=== PATIENT | male | born 1955 | race Caucasian/White ===

== ENCOUNTER 2016-11-30 10:34 | Emergency (ER) | payer OTHER ==
[2016-11-30 10:46] VITALS: BMI 25.8
[2016-11-30] MEDS ORDERED: KETOROLAC TROMETHAMINE 60 MG/2 ML VIAL IM ONE (11:30)
--- NOTE | 2016-11-30 11:35 | PDOC ---
History of Present Illness - General Chief Complaint: Injury Stated Complaint: FALL, RT LEG PAIN Time Seen by Provider: 11/30/16 11:06 History Source: Patient Exam Limitations: No Limitations - History of Present Illness Initial Comments: 11/30/16 11:32 Patient status post fall Tuesday 2. 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 Patient states was well, had no head injury, was able to lift self and continue his work. States approximately 20 minutes later same incident occurred causing him to pull his left shoulder, and falling onto her right shoulder and hip. Continued to have no pain and finished his exercise/activity. States had an uneventful evening had some mild tenderness to his hip and his shoulder, took some Tylenol. Upon his wakening this morning states had severe pain to his right groin where he states is difficult to lift leg and with range of motion. Ambulation 11/30/16 11:35 Occurred: reports: just prior to arrival, last week Severity: reports: mild, moderate Pain Location: reports: lower extremity, upper extremity (left shoulder ) Modifying Factors: worse with: cold therapy (heat pad) Associated Symptoms (Fall): denies symptoms Past History - Travel Traveled outside of the country in the last 30 days: No Close contact w/someone who was outside of country & ill: No - Past Medical History Allergies/Adverse Reactions: Allergies Allergy/AdvReac Type Severity Reaction Status Date / Time No Known Allergies Allergy Verified 11/30/16 10:43 Home Medications: Ambulatory Orders Atorvastatin Ca [Lipitor] 10 mg PO HS 11/30/16 Hypercholesterolemia: Yes - Surgical History Orthopedic Surgery: No - Family Disease History Family Disease History: Heart Disease: Father, Mother, [place]: Grandparents - Psycho/Social/Smoking Cessation Hx Anxiety: No Suicidal Ideation: No Smoking History: Current every day smoker Have you smoked in the past 12 months: Yes Number of Cigarettes Smoked Daily: 10 Information on smoking cessation initiated: Yes 'Breaking Loose' booklet given: 11/30/16 Hx Alcohol Use: No Drug/Substance Use Hx: No Substance Use Type: None Trauma Specific PMHX - Complaint Specific PMHX Arthritis: No Back Injury: No Neck Injury: No Hx Sacro Iliac Joint Dysfunction: No Review of Systems - Review of Systems Able to Perform ROS?: Yes Is the patient limited Slovak proficient: Yes Constitutional: Yes: Symptoms Reported, See HPI. No: Fever, Malaise HEENTM: No: Symptoms Reported Respiratory: Yes: See HPI. No: Symptoms reported Cardiac (ROS): No: Symptoms Reported ABD/GI: No: Symptoms Reported : No: Symptoms Reported Musculoskeletal: Yes: Symptoms Reported, See HPI, Joint Pain (left shoulder / right upper leg ) Integumentary: Yes: See HPI. No: Symptoms Reported All Other Systems: Reviewed and Negative *Physical Exam - Vital Signs Last Vital Signs Temp Pulse Resp BP Pulse Ox 98.2 F 83 18 162/99 100 11/30/16 10:44 11/30/16 10:44 11/30/16 10:44 11/30/16 10:44 11/30/16 10:44 - Physical Exam General Appearance: Yes: Appropriately Dressed, Apparent Distress, Mild Distress , Moderate Distress HEENT: positive: TMs Normal, Pharynx Normal Neck: positive: Supple. negative: Tender Respiratory/Chest: positive: Lungs Clear, Normal Breath Sounds Gastrointestinal/Abdominal: positive: Soft. negative: Tender Extremity: positive: Normal Capillary Refill, Normal Inspection, Tender, Other ( right hip/pelvis without pain with rocking however difficult to move and pain reproduced at groin ligament with contraction of quadriceps. Able to lift leg from bed, strong flexion and extension at lower extremity knee ankle and feet. ) . negative: Normal Range of Motion (tender left shoulder capsule with pain abduction, worse against resistance. Has strong grasp, flexion and extension, no pain with supination and pronation at elbow or wrist. 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 Patient understands will need to get clearance for work from these private physician. *DC/Admit/Observation/Transfer Diagnosis at time of Disposition: Inguinal strain Qualifiers: Encounter type: initial encounter Laterality: right Qualified Code(s): S76.211A - Strain of adductor muscle, fascia and tendon of right thigh, initial encounter - Discharge Dispostion Disposition: HOME Condition at time of disposition: Stable Admit: No - Referrals Referrals: Johnnie Orozco MD [Primary Care Provider] - Luis Ferrera MD [Staff Physician] - - Patient Instructions Printed Discharge Instructions: DI for Groin Strain, DI for Shoulder Sprain Additional Instructions: Rest, ice to area on and off for 15 minutes 4-6 times a day Avoid heavy lifting or exercise until pain and swelling is resolved or until further directed Keep area highly elevated to reduce swelling Use splints/Varun wrap as directed Followup with orthopedist in one to 2 days if not improving, if significantly improved may wait one week for followup with orthopedist May use ibuprofen 2-200 mg tablets every 6 hours as needed for pain - Post Discharge Activity Work/School Note: Back to Work
[2016-11-30] MEDS ORDERED: KETOROLAC TROMETHAMINE 60 MG/2 ML VIAL ONE (11:37)
[2016-11-30 14:39] VITALS: BP 141/97; PULSE 81; TEMP 98
== END 2016-11-30 13:39 | disposition home or self-care (01) ==
LOC: JER 10:34 → JERFT 10:34 → JER 13:39
PROC: 3E0233Z Introduction of Anti-inflammatory into Muscle, Percutaneous Approach (ICD-10-PCS; principal; 2016-11-30)
DX: S76.211A Strain of adductor muscle, fascia and tendon of right thigh, initial encounter (principal); W00.0XXA Fall on same level due to ice and snow, initial encounter; Y93.H9 Activity, other involving exterior property and land maintenance, building and construction; Y92.218 Other school as the place of occurrence of the external cause; Y99.0 Civilian activity done for income or pay
CPT/HCPCS: 72170-TC; 99282-25